=== PATIENT | male | born 1990 | race Asian ===

== ENCOUNTER 2022-07-28 14:07 | Outpatient (CLI) | payer SELFPAY ==
[2022-07-28 14:58] LABS: TOTAL HEMOGLOBIN 15.7 G/dl (14.0-17.9)
== END 2022-07-28 23:59 | disposition home or self-care (01) ==
LOC: RT 14:07
PROVIDERS: ATTEND Family Medicine
DX: J30.9 Allergic rhinitis, unspecified (principal)
CPT/HCPCS: 85018; 94010; 94727; 94729

== ENCOUNTER 2022-11-17 09:51 | Emergency (ER) | payer MEDICAID, SELFPAY ==
[~2022-11-17] VITALS: Ht 172.7 cm; Wt 68.0 kg
[2022-11-17 09:59] VITALS: BP 146/100
[2022-11-17] MEDS ORDERED: LIDOcaine/epinephrine/tetracaine TOPICAL sol 3 ML syringe TOP ONE (11:15)
[2022-11-17] MEDS ORDERED: LIDOcaine 1% W/epiNEPHrine 1:100,000 20ml vial SQ ONE (11:15)
--- NOTE | 2022-11-17 12:23 | NUR ---
PROVIDER GIVEN STERILE LACERATION TRAY
== END 2022-11-17 12:40 | disposition home or self-care (01) ==
LOC: ER 09:52
DX: S81.812A Laceration without foreign body, left lower leg, initial encounter (principal); W01.0XXA Fall on same level from slipping, tripping and stumbling without subsequent striking against object, initial encounter; Y93.89 Activity, other specified; Y92.89 Other specified places as the place of occurrence of the external cause; Y99.8 Other external cause status
CPT/HCPCS: 12001; 99282; J7030; A6258; A6449